=== PATIENT | male | born 1955 | race African-American/Black ===

== ENCOUNTER 2023-11-11 18:54 | Emergency (ER) | payer OTHER ==
[~2023-11-11] VITALS: Ht 185.4 cm; Wt 100.0 kg
[2023-11-11 18:57] VITALS: O2SAT 98
[2023-11-11 19:54] LABS: BASOPHILS % 0.6 % (0.0-2.0); CHLORIDE 105 mEq/L (98-107); EOSINOPHILS % 0.6 % (0.0-5.0); HEMATOCRIT. 35.9 % (42.0-52.0); HEMOGLOBIN. 11.5 g/dL (14.0-18.0); LYMPHOCYTES % 12.6 % (20.0-50.0); MEAN CORPUSCULAR HEMOGLOBIN 28.8 pg (28.0-32.0); MEAN CORPUSCULAR HGB CONC 31.9 g/dL (31.0-37.0); MEAN CORPUSCULAR VOLUME 90.3 fL (80.0-94.0); MEAN PLATELET VOLUME 8.3 fl (7.4-10.4); MONOCYTES % 12.3 % (2.0-8.0); NEUTROPHILS % 73.9 % (40.0-76.0); PLATELET 149 x1000/uL (130-400); POTASSIUM 4.3 mEq/L (3.5-5.1); RED BLOOD CELL COUNT 3.98 mill/uL (4.7-6.1); RED CELL DISTRIBUTION WIDTH 15.6 % (11.6-14.6); SODIUM 136 mEq/L (136-145); WHITE BLOOD COUNT 8.7 x1000/uL (4.5-11.0)
[2023-11-11 19:55] LABS: CARBON DIOXIDE 27 mEq/L (21-32)
[2023-11-11 19:56] LABS: CALCIUM 9.1 mg/dL (8.7-10.4)
[2023-11-11] MEDS: ACETAMINOPHEN 325MG TABLET PO STA (19:59)
[2023-11-11] MEDS: SODIUM CHLORIDE 0.9% 1,000 ML IV ONE (19:59)
[2023-11-11 20:00] LABS: CREATININE 1.6 mg/dL (0.6-1.3); GLUCOSE 76 mg/dL (70-105); PROTHROMBIN TIME 11.4 sec (9.6-11.0)
[2023-11-11 20:01] LABS: TROPONIN I HIGH SENSITIVITY 12 ng/L (3.0-53); UREA NITROGEN BLOOD 19 mg/dL (9-23)
[2023-11-11 20:02] LABS: ALANINE AMINOTRANSFERASE 10 IU/L (10-49); ALBUMIN 4.1 g/dL (3.2-4.8); ASPARTATE AMINOTRANSFERASE 19 IU/L (<34)
[2023-11-11 20:03] LABS: BILIRUBIN DIRECT 0.3 mg/dL (<=3.0); BILIRUBIN TOTAL 0.9 mg/dL (0.1-1.0); PROTEIN TOTAL 7.1 g/dL (6.0-8.3)
[2023-11-11 21:50] VITALS: BP 142/64; PULSE 97; RESP 18; TEMP 38.44752; O2SAT 99
== END 2023-11-11 21:57 | disposition home or self-care (01) ==
LOC: ER 18:54
DX: U07.1 COVID-19 (principal); N17.9 Acute kidney failure, unspecified; E11.9 Type 2 diabetes mellitus without complications; I10 Essential (primary) hypertension; Z20.822 Contact with and (suspected) exposure to COVID-19
CPT/HCPCS: 99285; 96360; 70450; 71045; 87426; 80076; 80048; 83605; 85025; 85610; 87040; 84484; 87804 ×2; 36415; 84145; 93005; J7030